=== PATIENT | female | born 1935 | race Asian ===

== ENCOUNTER 2018-10-30 06:54 | Inpatient (IN) | payer MEDICARE ==
[~2018-10-30] VITALS: Ht 160 cm; Wt 81.9 kg
[~2018-10-30 06:54] MED LIST: ALLO300T PO; AMLO-150 PO; AZEL137S4 NAS; CETI10TA18 PO; CIPR500T3 PO; FERR325T18 PO; GLUC1TAB55 PO; HYDR-3237 PO; Hydrocodone Bit/Acetaminophen PO; INDO50CA5 PO; LEVO500T47 PO; METO25TA35 PO; MONT10TA6 PO; OXYC-302 PO; PANT40TA3 PO; PANT40TA5 PO; POLY17PO5 PO; PSYL0.5215 PO; RANI150T4 PO; TOLT1TAB14 PO; VALS160T3 PO; VERA120C2 PO; dramamine PO
--- NOTE | 2018-10-30 07:35 | NUR ---
PT PRESENTED TO ED WITH "BLOOD IN STOOL X 3 SINCE LAST NIGHT" PT STATED SHE EATS A LOT OF CHERRIES. PT A&OX4. PT PLACED ON BP AND CONT. PULSE OXIMETER. ASSESSMENT COMPLETED. CALL LIGHT IN REACH. AWAITING MD.
[2018-10-30] MEDS ORDERED: PANTOPRAZOLE 80 MG in SODIUM CHLORIDE 0.9% 100 ML IV SCH (07:46)
[2018-10-30] MEDS ORDERED: PANTOPRAZOLE 80 MG in SODIUM CHLORIDE 0.9% 50 ML IVPB ONE (07:46)
[2018-10-30] MEDS ORDERED: SODIUM CHLORIDE FLUSH 10ML SYR IVF ONE (08:00)
[2018-10-30] MEDS ORDERED: LOSA100T14 PO (08:00)
--- NOTE | 2018-10-30 08:04 | NUR ---
OCCULT BLOOD DONE WITH PA AND POSITIVE.
[2018-10-30 08:16] LABS: BASOPHILS # (AUTO) 0.09 x10^3/uL (0-0.1); BASOPHILS % (AUTO) 2 % (0-1); EOSINOPHILS # (AUTO) 0.44 x10^3/uL (0-0.4); EOSINOPHILS % (AUTO) 8 % (1-7); LYMPHOCYTES # (AUTO) 1.29 x10^3/uL (1-3.4); LYMPHOCYTES % (AUTO) 24 % (22-44); MD NO; MEAN CORPUSCULAR HEMOGLOBIN 30.8 pg (27.0-34.8); MEAN CORPUSCULAR HGB CONC 32.8 g/dL (32.4-35.8); MEAN CORPUSCULAR VOLUME 93.9 fL (80-100); MEAN PLATELET VOLUME 7.7 fL (7.4-10.4); MONOCYTES % (AUTO) 8 % (2-9); NEUTROPHILS # (AUTO) 3.11 x10^3/uL (1.8-6.8); NEUTROPHILS % (AUTO) 58 % (42-75); PLATELET COUNT 194 x10^3/uL (130-400); RED BLOOD COUNT 4.34 x10^6/uL (3.82-5.3); RED CELL DISTRIBUTION WIDTH 14.9 % (9.6-15.2)
[2018-10-30 08:28] LABS: ALANINE AMINOTRANSFERASE 20 U/L (12-78); ALBUMIN 3.8 g/dL (3.4-5.0); ANION GAP 7 mmol/L (5-15); CALCIUM 9.4 mg/dL (8.5-10.1); CHLORIDE 110 mmol/L (98-107); CREATININE 0.64 mg/dL (0.55-1.02)
[2018-10-30 08:29] LABS: INTERNATIONAL NORMALIZED RATIO 0.99 (0.93-1.1); PROTHROMBIN TIME 10.5 Seconds (9.6-11.5)
[2018-10-30 08:30] LABS: ALKALINE PHOSPHATASE 51 U/L (45-117); BILIRUBIN,TOTAL 0.4 mg/dL (0.2-1.0); TOTAL PROTEIN 7.6 g/dL (6.4-8.2)
[2018-10-30] MEDS ORDERED: OMNIPAQUE 350 MG/ML, 100ML BOTTLE ONE (08:47)
--- NOTE | 2018-10-30 08:49 | NUR ---
PT TAKEN TO RADIOLOGY
--- NOTE | 2018-10-30 09:06 | NUR ---
PT ASSISTED TO BSC. BLOODY STOOL X 1. SMALL AMOUNT OF BURGUNDY BLOOD MIXED WITH URINE. PT THEN BACK TO BED WITH SBA. MEDICATIONS STARTED PER MD ORDER.
--- NOTE | 2018-10-30 10:58 | NUR ---
PT ASSISTED TO BSC AND URINE SENT TO LAB.
--- NOTE | 2018-10-30 11:08 | NUR ---
REPORT GIVEN TO SHAYY FU.
--- NOTE | 2018-10-30 11:22 | NUR ---
PT TRANSFERRED TO FLOOR BY TECH.
[2018-10-30] MEDS ORDERED: LABETALOL 5MG/ML, 20ML IVPush PRN (11:30)
[2018-10-30] MEDS ORDERED: POLYETHYLENE GLYCOL 17 GM PACKET PO PRN (11:30)
[2018-10-30] MEDS ORDERED: ONDANSETRON 2MG/ML, 2ML IVPush PRN (11:30)
[2018-10-30] MEDS ORDERED: ONDANSETRON ODT 4 MG PO PRN (11:30)
[2018-10-30 11:42] LABS: MICROSCOPIC AUTO
[2018-10-30 11:47] LABS: CULTURE INDICATED? NO
[2018-10-30 12:02] VITALS: BP 138/72
[2018-10-30] MEDS: D5%-0.45% NACL 1,000 ML IV SCH ×2 (14:00→17:36)
[2018-10-30] MEDS: PANTOPRAZOLE 40 MG IV IVPush SCH (17:25)
[2018-10-30 19:11] VITALS: BP 153/77
[2018-10-30] MEDS: TOLTERODINE 2MG TABLET PO SCH (21:48)
[2018-10-30] MEDS: METOPROLOL TARTRATE 25 MG TABLET PO SCH (21:48)
[2018-10-31 00:18] VITALS: BP 128/78
[2018-10-31 03:35] LABS: ALANINE AMINOTRANSFERASE 18 U/L (12-78); ALBUMIN 2.9 g/dL (3.4-5.0); ANION GAP 5 mmol/L (5-15); BASOPHILS # (AUTO) 0.08 x10^3/uL (0-0.1); BASOPHILS % (AUTO) 1 % (0-1); CALCIUM 8.3 mg/dL (8.5-10.1); CHLORIDE 112 mmol/L (98-107); CREATININE 0.51 mg/dL (0.55-1.02); EOSINOPHILS # (AUTO) 0.38 x10^3/uL (0-0.4); EOSINOPHILS % (AUTO) 6 % (1-7); LYMPHOCYTES # (AUTO) 1.36 x10^3/uL (1-3.4); LYMPHOCYTES % (AUTO) 22 % (22-44); MD NO; MEAN CORPUSCULAR HEMOGLOBIN 31.8 pg (27.0-34.8); MEAN CORPUSCULAR HGB CONC 33.7 g/dL (32.4-35.8); MEAN CORPUSCULAR VOLUME 94.3 fL (80-100); MEAN PLATELET VOLUME 7.3 fL (7.4-10.4); MONOCYTES # (AUTO) 0.54 x10^3/uL (0.2-0.8); MONOCYTES % (AUTO) 9 % (2-9); NEUTROPHILS # (AUTO) 3.74 x10^3/uL (1.8-6.8); NEUTROPHILS % (AUTO) 61 % (42-75); PLATELET COUNT 176 x10^3/uL (130-400); RED BLOOD COUNT 3.72 x10^6/uL (3.82-5.3); RED CELL DISTRIBUTION WIDTH 14.7 % (9.6-15.2)
[2018-10-31 03:46] LABS: ALKALINE PHOSPHATASE 45 U/L (45-117); BILIRUBIN,TOTAL 0.5 mg/dL (0.2-1.0); TOTAL PROTEIN 6.2 g/dL (6.4-8.2)
[2018-10-31] MEDS: PANTOPRAZOLE 40 MG IV IVPush SCH (05:49)
[2018-10-31] MEDS: D5%-0.45% NACL 1,000 ML IV SCH (05:50)
[2018-10-31 07:00] VITALS: BP 123/55
[2018-10-31] MEDS ORDERED: AMLODIPINE 5 MG TABLET PO SCH (09:00)
[2018-10-31] MEDS ORDERED: ALLOPURINOL 300 MG TABLET PO SCH (09:00)
[2018-10-31] MEDS ORDERED: SENNA/DOCUSATE TABLET PO SCH (09:00)
[2018-10-31] MEDS ORDERED: PSYLLIUM PACKET PO SCH (09:00)
[2018-10-31] MEDS: METOPROLOL TARTRATE 25 MG TABLET PO SCH (09:01)
[2018-10-31] MEDS: TOLTERODINE 2MG TABLET PO SCH (10:34)
[2018-10-31] MEDS ORDERED: SODIUM CHLORIDE 0.45% 1,000 ML IV SCH (11:00)
[2018-10-31 13:19] VITALS: BP 131/66
[2018-10-31] MEDS ORDERED: PANT40TA3 PO (13:48)
[2018-10-31] MEDS ORDERED: AMLO-150 PO (13:49)
== END 2018-10-31 15:45 | disposition home or self-care (01) | DRG 394 ==
LOC: ED 10:13 → EDIP 10:37 → 3NE 11:23
PROVIDERS: ADMIT Hospitalist; ATTEND Hospitalist
DX: K64.8 Other hemorrhoids (principal); J96.10 Chronic respiratory failure, unspecified whether with hypoxia or hypercapnia; N32.1 Vesicointestinal fistula; E11.9 Type 2 diabetes mellitus without complications; I10 Essential (primary) hypertension; J45.909 Unspecified asthma, uncomplicated; K57.90 Diverticulosis of intestine, part unspecified, without perforation or abscess without bleeding; K64.9 Unspecified hemorrhoids; M10.9 Gout, unspecified; M19.90 Unspecified osteoarthritis, unspecified site; R32 Unspecified urinary incontinence; N83.8 Other noninflammatory disorders of ovary, fallopian tube and broad ligament; N85.8 Other specified noninflammatory disorders of uterus; Z99.81 Dependence on supplemental oxygen; Z87.440 Personal history of urinary (tract) infections; Z72.89 Other problems related to lifestyle; Z90.49 Acquired absence of other specified parts of digestive tract
CPT/HCPCS: 36415; 74177; 76830; 80053; 81001; 83735; 84100; 84439; 84443; 85014; 85018; 85025; 85610; 85730; 93005; 96365; 99285; G0378; Q9967; C9113

== ENCOUNTER 2018-11-19 08:00 | Outpatient (CLI) | payer MEDICARE ==
[~2018-11-19] VITALS: Ht 162.6 cm; Wt 82.7 kg
[~2018-11-19 08:00] MED LIST changes: +LOSA100T14 PO
[2018-11-19] MEDS ORDERED: HYDR-3237 PO (11:25)
[2018-11-19] MEDS ORDERED: LOSA100T14 PO (11:25)
[2018-11-19] MEDS ORDERED: MIRA25TA PO (11:25)
[2018-11-19] MEDS ORDERED: PANT40TA3 PO (11:25)
[2018-11-19] MEDS ORDERED: AMLO2.5T5 PO (11:25)
== END 2018-11-19 23:59 | disposition home or self-care (01) ==
LOC: CARD 08:00 → EDSTATUS 11-22 09:30
PROVIDERS: ATTEND Specialist
DX: Z01.818 Encounter for other preprocedural examination (principal); R19.07 Generalized intra-abdominal and pelvic swelling, mass and lump
CPT/HCPCS: 93005

== ENCOUNTER 2018-12-06 07:32 | Day surgery (SDC) | payer MEDICARE ==
[~2018-12-06] VITALS: Ht 160 cm; Wt 82.0 kg
[~2018-12-06 07:32] MED LIST changes: +AMLO2.5T5 PO; +BUPIVACAINE/PF 0.25% ONE; +EPINEPHRINE 1 MG/ML, 1ML ONE; +MIRA25TA PO
[2018-12-06] MEDS ORDERED: LACTATED RINGERS 1,000 ML IV SCH (08:06)
[2018-12-06] MEDS ORDERED: FENTANYL PF 250 MCG/5ML ONE (08:09)
[2018-12-06 08:10] VITALS: BP 171/84
[2018-12-06] MEDS ORDERED: DEXAMETHASONE 4 MG/ML, 1ML ONE ×2 (08:10)
[2018-12-06] MEDS ORDERED: ONDANSETRON 2MG/ML, 2ML ONE (08:10)
[2018-12-06] MEDS ORDERED: PROPOFOL 10 MG/ML, 20ML ONE (08:10)
[2018-12-06] MEDS ORDERED: LIDOCAINE-MPF 1%, 2ML INFIL ONE (08:30)
[2018-12-06] MEDS ORDERED: OXYcodone 5 MG/5 ML ORAL.SOL UDC PO PRN (09:00)
[2018-12-06] MEDS ORDERED: ONDANSETRON ODT 8 MG PO PRN (09:00)
[2018-12-06] MEDS ORDERED: LABETALOL 5MG/ML, 20ML IV PRN (09:00)
[2018-12-06] MEDS ORDERED: PROMETHAZINE 25 MG SUPP PR PRN (09:00)
[2018-12-06] MEDS ORDERED: FENTANYL PF 100 MCG/2ML IV PRN (09:00)
[2018-12-06] MEDS ORDERED: PROMETHAZINE 25 MG/ML, 1ML IV PRN (09:00)
[2018-12-06] MEDS ORDERED: hydrALAzine 20 MG/ML, 1ML IV PRN (09:00)
[2018-12-06] MEDS ORDERED: ONDANSETRON 2MG/ML, 2ML IV PRN (09:00)
[2018-12-06] MEDS ORDERED: HYDROmorphone 2 MG/ML, 1ML IVPush PRN (09:00)
[2018-12-06] MEDS ORDERED: MEPERIDINE/PF 25MG/0.5ML IVPush PRN (09:00)
[2018-12-06] MEDS ORDERED: ALBUTEROL SULFATE 2.5 MG/3 ML NPPB PRN (09:00)
[2018-12-06] MEDS ORDERED: ACETAMINOPHEN 325 MG TABLET PO PRN (09:00)
[2018-12-06] MEDS ORDERED: MORPHINE SULFATE 4 MG/ML, 1ML IVPush PRN (09:00)
[2018-12-06] MEDS ORDERED: PROMETHAZINE 25 MG/ML, 1ML IM PRN ×2 (09:00)
[2018-12-06] MEDS ORDERED: PROMETHAZINE 12.5 MG SUPP PR PRN (09:00)
[2018-12-06] MEDS ORDERED: OXYcodone 5 MG/5 ML ORAL.SOL UDC ONE (10:08)
[2018-12-06] MEDS ORDERED: ACETAMINOPHEN 650 MG/20.3 ML UDC ONE (10:08)
== END 2018-12-06 12:15 | disposition home or self-care (01) ==
LOC: OUT 07:32
PROVIDERS: ATTEND Specialist
DX: N95.0 Postmenopausal bleeding (principal); N88.8 Other specified noninflammatory disorders of cervix uteri; I10 Essential (primary) hypertension; M10.9 Gout, unspecified; K21.9 Gastro-esophageal reflux disease without esophagitis; J44.9 Chronic obstructive pulmonary disease, unspecified; Z98.890 Other specified postprocedural states
CPT/HCPCS: 57522; 58120; 88305; 88307; J1100; J2405; J2704; J3010; J0171; J3490

== ENCOUNTER → 2021-01-30 | Outpatient (CLI) | payer MEDICARE ==
[~2021-01-30] MED LIST changes: -BUPIVACAINE/PF 0.25% ONE; -CIPR500T3 PO; +CIPR500T4 PO; -EPINEPHRINE 1 MG/ML, 1ML ONE; +INDO50CA15 PO; -INDO50CA5 PO; -OXYC-302 PO; +OXYC1TAB14 PO; -PANT40TA5 PO; +PANT40TA6 PO; +REGADENOSON 0.4 MG/5 ML SYRINGE ONE
== END | disposition home or self-care (01) ==
LOC: CVU 10:22
PROVIDERS: ATTEND Internal Medicine Cardiovascular Disease
DX: I08.3 Combined rheumatic disorders of mitral, aortic and tricuspid valves (principal); R06.02 Shortness of breath; I10 Essential (primary) hypertension; I45.10 Unspecified right bundle-branch block
CPT/HCPCS: 78452; 93017; 93306; A9502; J2785